=== PATIENT | male | born 1985 | race Two or more races ===

== ENCOUNTER 2019-04-17 18:23 | Emergency (ER) | payer MEDICAID ==
[~2019-04-17] VITALS: Ht 172.7 cm; Wt 78.0 kg
[2019-04-17] MEDS ORDERED: ACETAMINOPHEN 325MG TABLET PO ONE (19:15)
[2019-04-17 21:53] VITALS: BP 141/72
== END 2019-04-17 21:53 | disposition home or self-care (01) ==
LOC: ER 18:23
DX: S02.2XXA Fracture of nasal bones, initial encounter for closed fracture (principal); S06.9X9A Unspecified intracranial injury with loss of consciousness of unspecified duration, initial encounter; Y04.0XXA Assault by unarmed brawl or fight, initial encounter; Y93.89 Activity, other specified; Y92.89 Other specified places as the place of occurrence of the external cause; Y99.8 Other external cause status
CPT/HCPCS: 70486; 99285